=== PATIENT | male | born 2000 | race African-American/Black ===

== ENCOUNTER 2022-01-22 13:39 | Emergency (ER) | payer MEDICAID ==
[~2022-01-22] VITALS: Ht 182.9 cm; Wt 73.0 kg
[2022-01-22 13:50] VITALS: BP 110/68
[2022-01-22] MEDS ORDERED: FAMOTIDINE 20MG/2ML VIAL IV STA (13:51)
[2022-01-22] MEDS ORDERED: ONDANSETRON HCL 4MG/2ML INJ IV STA (13:51)
[2022-01-22] MEDS ORDERED: SODIUM CHLORIDE 0.9% 1,000 ML IV ONE (14:00)
[2022-01-22 15:28] LABS: HEMATOCRIT. 43.1 % (42.0-52.0); HEMOGLOBIN. 15.2 g/dL (14.0-18.0); MEAN CORPUSCULAR HEMOGLOBIN 31.1 pg (28.0-32.0); MEAN CORPUSCULAR VOLUME 88.4 fL (80.0-94.0); MEAN PLATELET VOLUME 9.6 fl (7.4-10.4); PLATELET 261 x1000/uL (130-400); RED BLOOD CELL COUNT 4.88 mill/uL (4.7-6.1); RED CELL DISTRIBUTION WIDTH 13.4 % (11.6-14.6)
[2022-01-22 15:30] LABS: CHLORIDE 108 mEq/L (98-107)
[2022-01-22 15:39] LABS: ETHANOL BLOOD < 10 mg/dL
[2022-01-22 16:59] LABS: PLATELET ESTIMATE NORMAL
== END 2022-01-22 22:15 | disposition left against medical advice (07) ==
LOC: ER 13:39
DX: R10.9 Unspecified abdominal pain (principal); R11.2 Nausea with vomiting, unspecified
CPT/HCPCS: 36415; 70450; 80053; 80320; 83690; 85025; 99284; J7030; G0480